=== PATIENT | male | born 1975 | race Caucasian/White ===

== ENCOUNTER 2019-08-10 19:56 | Emergency (ER) | payer OTHER ==
[~2019-08-10] VITALS: Ht 167.6 cm; Wt 79.4 kg
[2019-08-10 20:00] VITALS: Ht 167.6 cm; Wt 79.4 kg
[2019-08-11 04:48] VITALS: BP 112/70
== END 2019-08-11 04:48 | disposition home or self-care (01) ==
LOC: ED 19:56
DX: F10.129 Alcohol abuse with intoxication, unspecified (principal)
CPT/HCPCS: 82962